=== PATIENT | male | born 1960 | race Caucasian/White ===

== ENCOUNTER 2020-11-29 09:31 | Emergency (ER) | payer OTHER ==
[2020-11-29 09:41] VITALS: BMI 29.6
[2020-11-29] MEDS ORDERED: IBUPROFEN 600 MG TABLET (FP) PO ONE ×2 (10:22→10:31)
[2020-11-29 11:13] LABS: EPI CELLS 5 /uL (0-25.1); HYALINE CASTS 9 /uL (0-3.1); URINE APPEARANCE CLOUDY; URINE BACTERIA 121 /uL (0-1359); URINE BILIRUBIN NEGATIVE (NEGATIVE); URINE COLOR DK YELLOW; URINE GLUCOSE (UA) NEGATIVE (NEGATIVE); URINE KETONE TRACE (NEGATIVE); URINE LEUK ESTERASE 1+ (NEGATIVE); URINE NITRITE NEGATIVE (NEGATIVE); URINE PROTEIN 2+ (NEGATIVE); URINE WBC 391 /uL (0-25.8)
[2020-11-29 12:09] VITALS: BP 110/71; PULSE 100; TEMP 98.2
== END 2020-11-29 12:55 | disposition home or self-care (01) ==
LOC: JER 09:31
DX: N30.00 Acute cystitis without hematuria (principal)
CPT/HCPCS: 36415; 81003; 87086; 87186; 87491; 87591; 99283-25